=== PATIENT | female | born 1945 | race Caucasian/White ===

== ENCOUNTER 2023-04-03 20:50 | Emergency (ER) | payer MEDICARE ==
[2023-04-03] MEDS ORDERED: EPINEPHrine 1 MG/ML SDV IM ONE (20:51)
[2023-04-03] MEDS ORDERED: methylPREDNISolone Sodium Succinate 125 MG/2 ML SDV IVPUSH ONE (20:51)
[2023-04-03] MEDS ORDERED: diphenhydrAMINE 50 MG/ML SDV IVPUSH ONE (20:51)
[2023-04-03] MEDS ORDERED: Ondansetron 4 MG/2 ML SDV IVPUSH ONE (21:00)
== END 2023-04-03 23:57 | disposition home or self-care (01) ==
LOC: JP.ED 20:50
DX: S80.869A Insect bite (nonvenomous), unspecified lower leg, initial encounter (principal); Z79.899 Other long term (current) drug therapy; Z88.6 Allergy status to analgesic agent; Z88.8 Allergy status to other drugs, medicaments and biological substances; W57.XXXA Bitten or stung by nonvenomous insect and other nonvenomous arthropods, initial encounter
CPT/HCPCS: 96372; 96374; 96375; 99284; J0171; J1200; J2405; J2930